=== PATIENT | male | born 1965 | race Asian ===

== ENCOUNTER 2021-07-13 10:28 | Inpatient (IN) | payer OTHER, SELFPAY ==
[~2021-07-13] VITALS: Ht 167.6 cm; Wt 78.5 kg
[2021-07-13 10:51] VITALS: BP 134/85
--- NOTE | 2021-07-13 10:59 | NUR ---
TENT 1. O2 SAT 89 AT THIS TIME.
--- NOTE | 2021-07-13 11:15 | NUR ---
PATIENT W/C ASSISTED TO BED 2.
--- NOTE | 2021-07-13 12:15 | NUR ---
55/M PRESENTS TO ED WITH C/O COUGH AND SOB X2 DAYS. PATIENT STATES HIS AND SON TESTED POSITIVE FOR COVID, STATING HE BEGAN HAVING SYMPTOMS BUT HAS NOT BEEN TESTED. PATIENT ARRIVED WITH OXYGEN IN THE HIGH 80's ON ROOM AIR. PATIENT DENIES CP, N/V/D, URINARY SYMPTOMS, FEVER OR CHILLS. PATIENT REPORTS HE IS NOT VACCINATED AGAINST COVID. 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 DR. MARIN BEDSIDE EVALUATING PATIENT.
--- NOTE | 2021-07-13 12:17 | NUR ---
POST ABG PUNCTURE PLACED BACK ON SUPPLEMENTAL OXYGEN AT 3 LPM VIA NC
--- NOTE | 2021-07-13 12:25 | NUR ---
20G IV ESTABLISHED TO LEFT AC, LABS COLLECTED AND WALKED TO LAB.
--- NOTE | 2021-07-13 12:30 | NUR ---
PATIENT PROVIDED WITH URINAL, URINE COLLECTED AND WALKED TO LAB.
--- NOTE | 2021-07-13 12:30 | NUR ---
NOVEL, MARIA AND FLU SWABS COLLECTED AND WALKED TO LAB.
[2021-07-13 13:00] LABS: HEMOGLOBIN 15.6 g/dL (12.0-18.0); WHITE BLOOD COUNT (AUTO) 4.4 K/uL (4.8-10.8)
[2021-07-13 13:06] LABS: BASOPHILS % (AUTO) 0.2 % (0.0-2.0); HEMATOCRIT 44.2 % (36-52); LYMPHOCYTES # (AUTO) 0.5 K/uL (2.0-11.5); LYMPHOCYTES % (AUTO) 11.5 % (20.5-51.1); MEAN CORPUSCULAR HEMOGLOBIN 31 pg (27-31); MEAN CORPUSCULAR HGB CONC 35 g/dL (33-37); MEAN CORPUSCULAR VOLUME 87.4 fL (80-94); MONOCYTES # (AUTO) 0.3 K/uL (0.8-1.0); MONOCYTES % (AUTO) 5.8 % (1.7-9.3); NEUTROPHILS # (AUTO) 3.6 K/uL (1.8-7.7); NEUTROPHILS % (AUTO) 82.5 % (42.2-75.2); PLATELET COUNT (AUTO) 104 K/uL (140-450); RED BLOOD CELL COUNT(AUTO) 5.05 MIL/uL (4.20-6.10); RED CELL DISTRIBUTION WIDTH 12.7 % (11.6-13.7)
[2021-07-13 13:17] LABS: ALBUMIN 3.2 g/dL (3.4-5.0); ANION GAP 12.9 (8-16); CARBON DIOXIDE 25.1 mmol/L (21-32); CREATININE 1.2 mg/dL (0.6-1.3); TOTAL BILIRUBIN 0.4 mg/dL (0.0-1.0)
[2021-07-13 13:18] LABS: C-REACTIVE PROTEIN QUANT 7.4 mg/dL (0.0-0.9); PROTHROMBIN TIME 9.5 secs (10.8-13.4)
[2021-07-13 13:41] LABS: CKMB RELATIVE INDEX 0.3 (0.0-2.5); CREATINE KINASE MB 1.7 ng/mL (0-3.6)
[2021-07-13 13:50] LABS: APPEARANCE,URINE BLOODY (CLEAR); BILIRUBIN,URINE NEGATIVE (NEGATIVE); BLOOD, URINE 2+ (NEGATIVE); COLOR,URINE OTHER (YELLOW); LEUKOCYTE ESTERASE ,URINE NEGATIVE (NEGATIVE); NITRITE, URINE NEGATIVE (NEGATIVE); UGLUCOSE NEGATIVE (NEGATIVE)
[2021-07-13 13:56] LABS: RSV NEGATIVE (NEGATIVE)
--- NOTE | 2021-07-13 14:25 | NUR ---
PT IN BED, URINAL PROVIDED, HOB ELEVATED FOR COMFORT, VSS, WILL CONTINUE TO MONITOR.
[2021-07-13 14:54] LABS: WBC,URINE 0-5 /HPF (0-5)
[2021-07-13] MEDS ORDERED: ACETAMINOPHEN 325 MG TAB PO ONE (15:10)
--- NOTE | 2021-07-13 15:11 | NUR ---
PATIENT HAS ORAL TEMP OF 102.3, DR. MARIN MADE AWARE.
[2021-07-13] MEDS ORDERED: MAG SULF 2000 MG/WATER PREMIX 50 ML IV PRN (15:55)
[2021-07-13] MEDS ORDERED: IBUPROFEN 400 MG TAB PO PRN (15:55)
[2021-07-13] MEDS ORDERED: ONDANSETRON 4 MG/2 ML VIAL IVP PRN (15:55)
[2021-07-13] MEDS ORDERED: MAGNESIUM OXIDE 400 MG TAB PO PRN (15:55)
[2021-07-13] MEDS ORDERED: POTASSIUM CHLORIDE 10 MEQ TABER PO PRN (15:55)
[2021-07-13] MEDS ORDERED: ACETAMINOPHEN 325 MG TAB PO PRN (15:55)
[2021-07-13] MEDS ORDERED: KCL 20 MEQ/WATER INJ PREMIX 200 ML IV PRN (15:55)
[2021-07-13] MEDS ORDERED: remdesivir COMMUNICATION ORDER 1 EA MISC MC PRN (16:05)
[2021-07-13] MEDS ORDERED: remdesivir CLINICAL MONITORING 1 EA MISC MC PRN (16:15)
[2021-07-13] MEDS ORDERED: REMDESIVIR. 200 MG in NACL 0.9% 100 ML IV SCH (17:00)
--- NOTE | 2021-07-13 17:00 | NUR ---
PATIENT PROVIDED WITH DINNER TRAY, PATIENT SITTING UP EATING. 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
[2021-07-13] MEDS ORDERED: cefTRIAXone 1,000 MG VIAL ONE (17:02)
[2021-07-13] MEDS ORDERED: AZITHROMYCIN 500 MG INJ VIAL IV ONE (17:17)
[2021-07-13] MEDS: AZITHROMYCIN 500 MG in DEXTROSE 5% 250 ML IV SCH (18:21)
--- NOTE | 2021-07-13 18:30 | NUR ---
PATIENT RESTING, SIDE RAIL UP X1, ON BEDSIDE HVAC SALES ENGINEER. PATIENT HAS NO COMPLAINTS OF PAIN OR SOB AT THIS TIME. ALL NEEDS MET AT THIS TIME.
--- NOTE | 2021-07-13 19:23 | NUR ---
Pt report given to KENIA MARTINEZ. Transfer of care at this time.
--- NOTE | 2021-07-13 19:25 | NUR ---
RECEIVED IN BED 2 RESTING WITH EYES CLOSED, AWAKENED WITH EASE FOR VS. VOICES NO COMPLAINTS. SL INTACT TO LEFT A/C
--- NOTE | 2021-07-13 20:30 | NUR ---
REPORT CALLED TO JUAN DUNN
--- NOTE | 2021-07-13 21:35 | NUR ---
TO 113 VIA GURBLAIR ATTACHED TO CM ACCOMPANIED BY RN AND ERT
[2021-07-14 01:51] VITALS: BP 135/86
--- NOTE | 2021-07-14 02:07 | NUR ---
the patient was admitted for SOB and productive cough. the admitting dx was Covid-19 pneumonia. the patient is on 5L NC to keep his 02 stat O2 AT 90%. THE PATIENT HAS ORDER FOR HIGH FLOW O2 IN CASE HIS O2 STAT LESS THAN 90%. THE PATEINT SLEEP COMFOTABLE IN HIS BED. COMFORT AND SAFETY MEASURES ARE PROVIDED. BED IS LOW POSITION
[2021-07-14 04:28] VITALS: BP 124/69
--- NOTE | 2021-07-14 06:39 | NUR ---
PATIENT HAS BEEN SCREENED AND CATEGORIZED MODERATE NUTRITION RISK. PATIENT WILL BE SEEN WITHIN 3-5 DAYS OF ADMISSION. 07/16/21 07/18/[address]
[2021-07-14 08:00] VITALS: BP 119/66
[2021-07-14] MEDS: COMMUNICATION ORDER MC SCH (08:40)
[2021-07-14 08:51] LABS: BASOPHILS % (AUTO) 0.1 % (0.0-2.0); HEMATOCRIT 46.9 % (36-52); LYMPHOCYTES # (AUTO) 0.7 K/uL (2.0-11.5); MEAN CORPUSCULAR HEMOGLOBIN 30 pg (27-31); MEAN CORPUSCULAR HGB CONC 34 g/dL (33-37); MEAN CORPUSCULAR VOLUME 89.1 fL (80-94); MONOCYTES # (AUTO) 0.3 K/uL (0.8-1.0); MONOCYTES % (AUTO) 5.5 % (1.7-9.3); NEUTROPHILS # (AUTO) 4.2 K/uL (1.8-7.7); NEUTROPHILS % (AUTO) 81.4 % (42.2-75.2); PLATELET COUNT (AUTO) 128 K/uL (140-450); RED BLOOD CELL COUNT(AUTO) 5.26 MIL/uL (4.20-6.10); RED CELL DISTRIBUTION WIDTH 13.1 % (11.6-13.7); WHITE BLOOD COUNT (AUTO) 5.2 K/uL (4.8-10.8)
[2021-07-14] MEDS: PANTOPRAZOLE 40 MG TABEC PO SCH (09:00)
[2021-07-14] MEDS: APIXABAN 2.5 MG TAB PO SCH ×2 (09:00→21:46)
[2021-07-14] MEDS ORDERED: ENOXAPARIN 40 MG/0.4 ML SYR SUBQ SCH (09:00)
[2021-07-14] MEDS: OLUMIANT PO SCH (09:00)
[2021-07-14 09:06] LABS: ALBUMIN 2.9 g/dL (3.4-5.0); ANION GAP 11.1 (8-16); CARBON DIOXIDE 25.8 mmol/L (21-32); MAGNESIUM 1.9 mg/dL (1.8-2.4); POTASSIUM 3.9 mmol/L (3.5-5.1); TOTAL BILIRUBIN 0.4 mg/dL (0.0-1.0)
[2021-07-14 12:00] VITALS: BP 121/66
[2021-07-14] MEDS: REMDESIVIR. 100 MG in NACL 0.9% 100 ML IV SCH (14:00)
[2021-07-14 16:00] VITALS: BP 118/88
[2021-07-14] MEDS: AZITHROMYCIN 500 MG in DEXTROSE 5% 250 ML IV SCH (18:30)
[2021-07-14 20:06] VITALS: BP 133/89
[2021-07-15] VITALS: BP 113/70
--- NOTE | 2021-07-15 02:37 | NUR ---
PATIENT AWAKE ALERT NO C/O IN ISOLATION FOR COVID AND PNEUMONIA SINUS ON MONITOR LUNGS DIMINISH SAT90% NO SIGNS OF ACUTE DISTRESS.HAS H.L IN UPPER LEFT ARM PATIENT TO FLUSH.
[2021-07-15 04:00] VITALS: BP 114/89
[2021-07-15 07:29] LABS: BASOPHILS % (AUTO) 0.2 % (0.0-2.0); HEMATOCRIT 47.2 % (36-52); HEMOGLOBIN 16.2 g/dL (12.0-18.0); LYMPHOCYTES # (AUTO) 0.9 K/uL (2.0-11.5); LYMPHOCYTES % (AUTO) 19.5 % (20.5-51.1); MEAN CORPUSCULAR HEMOGLOBIN 30 pg (27-31); MEAN CORPUSCULAR HGB CONC 34 g/dL (33-37); MEAN CORPUSCULAR VOLUME 87.5 fL (80-94); MONOCYTES # (AUTO) 0.6 K/uL (0.8-1.0); MONOCYTES % (AUTO) 11.4 % (1.7-9.3); NEUTROPHILS # (AUTO) 3.3 K/uL (1.8-7.7); NEUTROPHILS % (AUTO) 68.9 % (42.2-75.2); PLATELET COUNT (AUTO) 157 K/uL (140-450); WHITE BLOOD COUNT (AUTO) 4.8 K/uL (4.8-10.8)
[2021-07-15 07:35] LABS: ALBUMIN 2.8 g/dL (3.4-5.0); ANION GAP 10.2 (8-16); CARBON DIOXIDE 26.7 mmol/L (21-32); CREATININE 1.1 mg/dL (0.6-1.3); MAGNESIUM 2.3 mg/dL (1.8-2.4); POTASSIUM 4.9 mmol/L (3.5-5.1); TOTAL BILIRUBIN 0.5 mg/dL (0.0-1.0)
[2021-07-15 08:00] VITALS: BP 101/67
--- NOTE | 2021-07-15 08:18 | NUR ---
RECEIVED PATIENT FROM NIGHT RN. PT A0X4, NO S/S OF SOB. LOOKS COMFORTABLE. VS STABLE. LAC 20G WNL. WILL CONT MONITORING.
[2021-07-15] MEDS: PANTOPRAZOLE 40 MG TABEC PO SCH (09:46)
[2021-07-15] MEDS: OLUMIANT PO SCH (09:47)
[2021-07-15] MEDS: COMMUNICATION ORDER MC SCH (09:48)
[2021-07-15] MEDS: APIXABAN 2.5 MG TAB PO SCH ×2 (11:25→21:00)
[2021-07-15 12:00] VITALS: BP 112/69
[2021-07-15] MEDS: REMDESIVIR. 100 MG in NACL 0.9% 100 ML IV SCH (14:00)
[2021-07-15 16:30] VITALS: BP 133/77
[2021-07-15] MEDS: AZITHROMYCIN 500 MG in DEXTROSE 5% 250 ML IV SCH (17:34)
--- NOTE | 2021-07-15 18:47 | NUR ---
NO SIGNIFICANT CHANGES. PTIENT REMAINS ON HI FLOW SATING 90% . ALL MEDS GIVEN. IV WNL. PT REMAINS AOX4. WILL ENDORSER REPORT TO PM JUAN.
[2021-07-15 20:00] VITALS: BP 120/78
[2021-07-16] VITALS: BP 121/68
--- NOTE | 2021-07-16 01:39 | NUR ---
PATIENT ALERT IN ISOLATION FOR COVID + SINUS ON MONITOR NO C/O HAS HIGH FLOW ON 100%. SAT 95%. LUNGS DIMINISH PATIENT VOIDING IN URINAL 400 CC OUT. NO BOWEL MOVEMENT.TEMP 97.8. HAS IV SITE 20 GA UPPER RIGHT ARM.
[2021-07-16 04:00] VITALS: BP 123/64
[2021-07-16 07:20] LABS: BASOPHILS % (AUTO) 0.1 % (0.0-2.0); EOSINOPHILS % (AUTO) 0.1 % (0.0-4.0); HEMATOCRIT 48.8 % (36-52); HEMOGLOBIN 16.7 g/dL (12.0-18.0); LYMPHOCYTES # (AUTO) 0.7 K/uL (2.0-11.5); LYMPHOCYTES % (AUTO) 12.8 % (20.5-51.1); MEAN CORPUSCULAR HEMOGLOBIN 30 pg (27-31); MEAN CORPUSCULAR HGB CONC 34 g/dL (33-37); MEAN CORPUSCULAR VOLUME 88.8 fL (80-94); MONOCYTES # (AUTO) 0.7 K/uL (0.8-1.0); MONOCYTES % (AUTO) 12.1 % (1.7-9.3); NEUTROPHILS # (AUTO) 4.1 K/uL (1.8-7.7); NEUTROPHILS % (AUTO) 74.9 % (42.2-75.2); PLATELET COUNT (AUTO) 209 K/uL (140-450); RED CELL DISTRIBUTION WIDTH 12.9 % (11.6-13.7); WHITE BLOOD COUNT (AUTO) 5.4 K/uL (4.8-10.8)
[2021-07-16 07:26] LABS: ALBUMIN 2.9 g/dL (3.4-5.0); ANION GAP 9.9 (8-16); CARBON DIOXIDE 27.1 mmol/L (21-32); MAGNESIUM 2.3 mg/dL (1.8-2.4); TOTAL BILIRUBIN 0.6 mg/dL (0.0-1.0)
[2021-07-16 08:00] VITALS: BP 115/75
--- NOTE | 2021-07-16 08:05 | NUR ---
RECEIVED ON A VAPOTHERM HIGH FLOW NASAL CANNULA WITH COMPRESSOR ON AND FUNCTIONING WELL PLUGGED INTO RED OUTLET TOLERATING WITHOUT ADVERSE REACTIONS NOTED LOC AWAKE AND ALERT VERBALLY RESPONSIVE POSITION ON RIGHT SIDE SATURATION 95% ON FIO2 OF 100% TITRATED FIO2 TO 95% ROD/RN NOTIFIED
[2021-07-16] MEDS: COMMUNICATION ORDER MC SCH (09:00)
[2021-07-16] MEDS: PANTOPRAZOLE 40 MG TABEC PO SCH (09:28)
[2021-07-16] MEDS: OLUMIANT PO SCH (09:31)
[2021-07-16] MEDS: APIXABAN 2.5 MG TAB PO SCH ×2 (09:31→20:50)
[2021-07-16 12:00] VITALS: BP 120/73
--- NOTE | 2021-07-16 14:17 | NUR ---
TOLERATING VAPOTHERM HIGH FLOW NASAL CANNULA GOOD CHEST RISE SATURATION 95% ON FIO2 OF 90% TITRATED FIO2 TO 85% ROD/RN NOTIFIED
[2021-07-16] MEDS: REMDESIVIR. 100 MG in NACL 0.9% 100 ML IV SCH (14:43)
[2021-07-16 16:00] VITALS: BP 126/89
--- NOTE | 2021-07-16 16:03 | NUR ---
DC PLANNING: CM ATTEMPTED TO SPEAK WITH THE PATIENT BY PHONE YESTERDAY, HE STATED THAT HE WAS UNABLE TO HEAR THE CM AND TERMINATED THE CALL. THE HUI CORRAL WILL ATTEMPTED TO REACH FAMILY TO INTERVIEW FOR DC PLANNING. CM WILL FOLLOW FOR NEEDS.
--- NOTE | 2021-07-16 16:48 | NUR ---
TOLERATING VAPOTHERM HIGH FLOW NASAL CANNULA ALERT AND AWAKE REMAINS ON RIGHT SIDE GOOD CHEST RISE SATURATION 94%-95% ON FIO2 OF 85% TITRATED FIO2 TO 80% ROD/RN NOTIFIED
[2021-07-16] MEDS: AZITHROMYCIN 500 MG in DEXTROSE 5% 250 ML IV SCH (17:35)
[2021-07-16 20:00] VITALS: BP 130/79
--- NOTE | 2021-07-16 20:00 | NUR ---
RECEIVED PATIENT AWAKE IN BED. PATIENT ON HFNC 30L 70% FIO2. O2 SAT 91%. NO SOB NOTED AT THIS TIME. NO COUGH AT THIS TIME. PT EDUCATED TO USE THE CALL LIGHT WHEN IN NEED OF ASSISTANCE. PT VERBALIZED UNDERSTANDING. PT ON TELE MONITORING. BED LOWERED WITH CALL LIGHT WITHIN REACH. WILL CONTINUE TO MONITOR
[2021-07-16] MEDS: ZOLPIDEM 5 MG TAB PO PRN (20:51)
[2021-07-17] VITALS: BP 125/75
--- NOTE | 2021-07-17 03:05 | NUR ---
PT ASLEEP IN BED. NO S/S OF DISTRESS NOTED
--- NOTE | 2021-07-17 03:21 | NUR ---
PT FEELING SOB. HFNC TITRATED TO 40L 80% FIO2. PT ASSISTED TO PRONE POSITION. OS SAT 91% AT THIS TIME.
[2021-07-17 04:00] VITALS: BP 124/74
[2021-07-17 07:10] LABS: BASOPHILS % (AUTO) 0.2 % (0.0-2.0); EOSINOPHILS % (AUTO) 0.1 % (0.0-4.0); HEMATOCRIT 48.3 % (36-52); HEMOGLOBIN 16.6 g/dL (12.0-18.0); LYMPHOCYTES # (AUTO) 1.1 K/uL (2.0-11.5); LYMPHOCYTES % (AUTO) 7.5 % (20.5-51.1); MEAN CORPUSCULAR HEMOGLOBIN 30 pg (27-31); MEAN CORPUSCULAR HGB CONC 34 g/dL (33-37); MEAN CORPUSCULAR VOLUME 87.5 fL (80-94); MONOCYTES # (AUTO) 1.1 K/uL (0.8-1.0); MONOCYTES % (AUTO) 7.5 % (1.7-9.3); NEUTROPHILS # (AUTO) 12.6 K/uL (1.8-7.7); NEUTROPHILS % (AUTO) 84.7 % (42.2-75.2); PLATELET COUNT (AUTO) 234 K/uL (140-450); RED BLOOD CELL COUNT(AUTO) 5.52 MIL/uL (4.20-6.10); RED CELL DISTRIBUTION WIDTH 12.8 % (11.6-13.7); WHITE BLOOD COUNT (AUTO) 14.9 K/uL (4.8-10.8)
--- NOTE | 2021-07-17 07:28 | NUR ---
PT REPORT GIVEN TO AM NURSE. PT ENDORSED IN STABLE CONDITION
--- NOTE | 2021-07-17 07:30 | NUR ---
RECEIVED REPORT FROM NIGHT NURSE PATIENT ON 40 L HIGH FLOW AT 70%, ON SINUS RHYTHM, SKIN INTACT, IV ON LEFT FA GAUGE 22 SALINE LOCK, CARDIAC DIET, PT UNVACCINATED. SAFETY MEASURES IN PLACE AND CALL LIGHT WITHIN REACH. WILL CONTINUE TO MONITOR.
--- NOTE | 2021-07-17 07:35 | NUR ---
RECEIVED ON A VAPOTHERM HIGH FLOW NASAL CANNULA WITH COMPRESSOR ON PLUGGED INTO RED OUTLET TOLERATING WELL WITHOUT ADVERSE REACTIONS NOTED PRONE POSITION STABLE GOOD GOOD CHEST RISE BREATH SOUNDS DECREASED BILATERAL GOOD AERATION THROUGHOUT BILATERAL AIRWAYS NO EVIDENCE OF RALES RO WHEEZE SATURATION 94% ON FIO2 OF 70% TITRATED FIO2 TO 65% QUINN/RN NOTIFIED
--- NOTE | 2021-07-17 07:43 | NUR ---
PATIENT SEEN BY RT AND HIGH FLOW AT 36 LITERS AND FIO2 65% SATURATING WELL.
[2021-07-17 07:44] LABS: ALBUMIN 2.9 g/dL (3.4-5.0); CARBON DIOXIDE 22.5 mmol/L (21-32); MAGNESIUM 2.1 mg/dL (1.8-2.4); POTASSIUM 4.5 mmol/L (3.5-5.1); TOTAL BILIRUBIN 0.8 mg/dL (0.0-1.0)
[2021-07-17 08:00] VITALS: BP 116/73
--- NOTE | 2021-07-17 08:53 | NUR ---
(07/17/21) RD INITIAL ASSESSMENT COMPLETED PLEASE REFER TO NUTRITION ASSESSMENT UNDER CARE ACTIVITY FOR ESTIMATED NUTRITIONAL NEEDS. RD RECOMMENDATIONS: 1. CONTINUE ON CARDIAC DIET TOLERATED. 2. RDN ADDED HEALTH SHAKES (6-OZ) TO EACH MEAL TID. THIS WILL PROVIDE AN ADDITIONAL 900 KCAL AND 27 GM PROTEIN TO HELP MEET EST NUTRIENT NEEDS. 3. CONSULT RDN PRN. 4. RD WILL F/U 3-5 DAYS; MODERATE RISK. KEVIN GARZA MS, RDN
[2021-07-17] MEDS: PANTOPRAZOLE 40 MG TABEC PO SCH (09:05)
[2021-07-17] MEDS: OLUMIANT PO SCH (09:06)
[2021-07-17] MEDS: APIXABAN 2.5 MG TAB PO SCH ×2 (09:07→22:00)
--- NOTE | 2021-07-17 09:15 | NUR ---
ADMINISTERED SCHEDULED MEDICATION AND CHECK VITAL SIGNS PRIOR TO MEDICATION BP 116/73 KS 86. PATIENT ON PRONE POSITION, STILL WITH SOB. PT TOLERATED MEDICATION. WILL CONTINUE TO MONITOR.
--- NOTE | 2021-07-17 11:00 | NUR ---
MADE ROUNDS PT ON PRONE POSITION ON HIGH FLOW 36L FIO2 65%, WILL CONTINUE TO MONITOR.
[2021-07-17 12:00] VITALS: BP 90/69
--- NOTE | 2021-07-17 12:08 | NUR ---
PATIENT ON PRONE POSITION SATURATION AT 96%
[2021-07-17] MEDS: REMDESIVIR. 100 MG in NACL 0.9% 100 ML IV SCH (13:14)
--- NOTE | 2021-07-17 13:19 | NUR ---
ADMINISTERED SCHEDULED MEDICATION REMDESIVIR 100 MG AT 133 MLS/HR INFUSING WELL PT STILL ON HIGH FLOW SATURATING AT 92% WILL CONTINUE TO MONITOR.
[2021-07-17 16:00] VITALS: BP 107/68
--- NOTE | 2021-07-17 16:15 | NUR ---
ADMINISTERED SCHEDULED ANTIBIOTIC CEFTRIAXONE 1000 MG INFUSING WELL PT ON HIGH FLOW AND ON PRONE POSITION SATURATING AT 945.
[2021-07-17] MEDS: AZITHROMYCIN 500 MG in DEXTROSE 5% 250 ML IV SCH (16:49)
--- NOTE | 2021-07-17 16:55 | NUR ---
SCHEDULED MEDICATION GIVEN AZITHROMYCIN 250 ML AT 500 MG INFUSING WELL
--- NOTE | 2021-07-17 17:38 | NUR ---
PT ON HIGH FLOW 36LITERS AND FIO2 60% SATURATING AT 94%. PER RT
--- NOTE | 2021-07-17 19:41 | NUR ---
ENDORSED TO NIGHT NURSE FOR CONTINUITY OF CARE. PT STABLE.
[2021-07-17 20:00] VITALS: BP 92/56
[2021-07-17] MEDS: ZOLPIDEM 5 MG TAB PO PRN (22:00)
--- NOTE | 2021-07-17 22:20 | NUR ---
Assumed care. A/O x 4. In no acute distress. Denies pain. Remains on HFNC 36 liters, 60% Fio2. BP is on the low side. Uses a urinal to void. Has a bedside commode. Will assist in use as needs arise. Advised to use call light in case he needs assistance. Verbalized understanding. Will continue to monitor.
[2021-07-18] VITALS: BP 97/54
[2021-07-18 04:00] VITALS: BP 99/54
--- NOTE | 2021-07-18 07:18 | NUR ---
RECEIVED REPORT FROM NIGHT NURSE PATIENT IS ON HIGH FLOW 36L FIO2 60%, IV ON THE LEFT FA G22 SALINE LOCK, SKIN INTACT,ON BEDREST. SAFETY MEASURES IN PLACE AND CALL LOGHT WITHIN REACH. WILL CONTINUE TO MONITOR.
--- NOTE | 2021-07-18 07:45 | NUR ---
Ther have been no changes in his status. Care has been endorsed to AM JUAN.
[2021-07-18 08:00] VITALS: BP 110/77
[2021-07-18 08:11] LABS: EOSINOPHILS # (AUTO) 0.1 K/uL (0-0.4); EOSINOPHILS % (AUTO) 0.5 % (0.0-4.0); HEMATOCRIT 46.3 % (36-52); HEMOGLOBIN 15.9 g/dL (12.0-18.0); LYMPHOCYTES # (AUTO) 0.9 K/uL (2.0-11.5); MEAN CORPUSCULAR HEMOGLOBIN 30 pg (27-31); MEAN CORPUSCULAR HGB CONC 34 g/dL (33-37); MEAN CORPUSCULAR VOLUME 88.5 fL (80-94); MONOCYTES # (AUTO) 0.6 K/uL (0.8-1.0); NEUTROPHILS # (AUTO) 10.9 K/uL (1.8-7.7); PLATELET COUNT (AUTO) 248 K/uL (140-450); RED BLOOD CELL COUNT(AUTO) 5.23 MIL/uL (4.20-6.10); RED CELL DISTRIBUTION WIDTH 12.9 % (11.6-13.7); WHITE BLOOD COUNT (AUTO) 12.4 K/uL (4.8-10.8)
[2021-07-18 08:38] LABS: ALBUMIN 2.8 g/dL (3.4-5.0); ANION GAP 13.1 (8-16); CARBON DIOXIDE 24.1 mmol/L (21-32); POTASSIUM 4.2 mmol/L (3.5-5.1); TOTAL BILIRUBIN 0.9 mg/dL (0.0-1.0)
[2021-07-18 09:03] LABS: NEUTROPHILS % (AUTO) 87.5 % (42.2-75.2)
[2021-07-18] MEDS: PANTOPRAZOLE 40 MG TABEC PO SCH (09:18)
[2021-07-18] MEDS: APIXABAN 2.5 MG TAB PO SCH ×2 (09:20→21:00)
[2021-07-18] MEDS: OLUMIANT PO SCH (09:20)
--- NOTE | 2021-07-18 09:25 | NUR ---
ADMINISTERED SCHEDULED MEDICATION, VITAL SIGNS CHECK BP 110/77 NH 81. PATIENT LYING ON THE SIDE NO DISTRESS NOTED, ON HIGH FLOW AT 30 LITERS AND 50% SATURATING AT 93%. WILL CONTINUE TO MONITOR.
--- NOTE | 2021-07-18 11:00 | NUR ---
MADE ROUNDS PATIENT RESTING STILL ON HIGH FLOW.
[2021-07-18 12:00] VITALS: BP 89/59
[2021-07-18] MEDS ORDERED: NACL 0.9% 250 ML IV ONE (12:25)
[2021-07-18] MEDS: MIDODRINE 5 MG TAB PO SCH ×2 (12:33→18:06)
--- NOTE | 2021-07-18 12:37 | NUR ---
MIDODRINE 5 MG GIVEN AND SODIUM CHLORIDE 0.9% 250 ML BOLUS GIVEN, PT BP 89/[address] WRIGHT AWARE. HIGH FLOW 25LITERS 50%. SATURATING AT 92%. NO DISTRESS NOTED.
--- NOTE | 2021-07-18 14:12 | NUR ---
PATIENT ON HIGH FLOW 25LITERS AND EAY626% SATURATING AT 92% NO DISTRESS NOTED PATIENT IS SITTING.
[2021-07-18 16:00] VITALS: BP 96/56
--- NOTE | 2021-07-18 18:09 | NUR ---
MIDODRINE 5 MG GIVEN PATIENT RESTING AT THIS TIME.
--- NOTE | 2021-07-18 19:16 | NUR ---
ENDORSED TO NIGHT NURSE FOR CONTINUITY OF CARE. PT STABLE
[2021-07-18 20:00] VITALS: BP 98/57
--- NOTE | 2021-07-18 20:36 | NUR ---
Asumed care. A/O x 4. In no acute distress respiratory or otherwise. Urinal has been emptied. Has a lot of trash on the floor. Floor has been cleaned. We have set him up with a trash bag within which he will be dumping his used tissues. Will continue to monitor.
[2021-07-18] MEDS: ZOLPIDEM 5 MG TAB PO PRN (20:59)
--- NOTE | 2021-07-18 22:47 | NUR ---
Remains calm. In no acute distress respiratory or otherwise. Helped connect Phone to district manager major accounts sales. Will continue to monitor.
[2021-07-19] VITALS: BP 95/64
[2021-07-19 04:00] VITALS: BP 98/63
[2021-07-19] MEDS: MIDODRINE 5 MG TAB PO SCH ×3 (07:02→18:27)
[2021-07-19 07:04] LABS: BASOPHILS % (AUTO) 0.2 % (0.0-2.0); EOSINOPHILS # (AUTO) 0.1 K/uL (0-0.4); EOSINOPHILS % (AUTO) 1.5 % (0.0-4.0); HEMATOCRIT 46.7 % (36-52); HEMOGLOBIN 15.8 g/dL (12.0-18.0); LYMPHOCYTES # (AUTO) 1.1 K/uL (2.0-11.5); LYMPHOCYTES % (AUTO) 11.9 % (20.5-51.1); MEAN CORPUSCULAR HEMOGLOBIN 30 pg (27-31); MEAN CORPUSCULAR HGB CONC 34 g/dL (33-37); MONOCYTES # (AUTO) 0.6 K/uL (0.8-1.0); MONOCYTES % (AUTO) 6.7 % (1.7-9.3); NEUTROPHILS # (AUTO) 7.2 K/uL (1.8-7.7); NEUTROPHILS % (AUTO) 79.7 % (42.2-75.2); PLATELET COUNT (AUTO) 318 K/uL (140-450); RED BLOOD CELL COUNT(AUTO) 5.24 MIL/uL (4.20-6.10); RED CELL DISTRIBUTION WIDTH 13.1 % (11.6-13.7)
--- NOTE | 2021-07-19 07:20 | NUR ---
RECEIVED REPORT FROM AUDIO VIDEO TECHNICIAN NURSE FOR CONTINUITY OF PATIENT CARE. PATIENT SLEEPING. NO ACUTE DISTRESS NOTED. BREATHING EVEN AND UNLABORED. PATIENT ON HIGH FLOW.PATIENT HAS L FOREARM 22 G. ALL SAFETY MEASURES IN PLACE. CALL LIGHT WITHIN REACH. WILL CONTINUE TO MONITOR.
[2021-07-19 07:22] LABS: ALBUMIN 2.8 g/dL (3.4-5.0); ANION GAP 12.9 (8-16); CARBON DIOXIDE 25.7 mmol/L (21-32); CREATININE 1.1 mg/dL (0.6-1.3); POTASSIUM 4.6 mmol/L (3.5-5.1); TOTAL BILIRUBIN 0.9 mg/dL (0.0-1.0)
--- NOTE | 2021-07-19 07:40 | NUR ---
PER RT, PATIENT WAS SWITCHED TO NC 15L
--- NOTE | 2021-07-19 07:42 | NUR ---
He has done well through the night. In no acute distress respiratory or otherwise. Has managed to keep the SBP in the high 90s. AM Midodrine has been administered. Care has been endorsed to AM RN
[2021-07-19 08:00] VITALS: BP 89/61
[2021-07-19] MEDS: PANTOPRAZOLE 40 MG TABEC PO SCH (09:40)
[2021-07-19] MEDS: APIXABAN 2.5 MG TAB PO SCH ×2 (09:42→21:02)
[2021-07-19] MEDS: OLUMIANT PO SCH (09:43)
--- NOTE | 2021-07-19 09:57 | NUR ---
PATIENT AWAKE AND ALERT. NO ACUTE DISTRESS NOTED. BREATHING EVEN AND UNLABORED. PATIENT ON 15L NC. PATIENT O2 IS 92%. SCHEDULED MEDICATIONS GIVEN.ALL SAFETY MEASURES IN PLACE. CALL LIGHT WITHIN REACH. WILL CONTINUE TO MONITOR.
--- NOTE | 2021-07-19 11:10 | NUR ---
PATIENT AWAKE AND ALERT. NO ACUTE DISTRESS NOTED. BREATHING EVEN AND UNLABORED. PATIENT ON 15L NC. PATIENT O2 IS 92%. ALL SAFETY MEASURES IN PLACE. CALL LIGHT WITHIN REACH. WILL CONTINUE TO MONITOR.
--- NOTE | 2021-07-19 11:18 | NUR ---
DC PLANNING: CM SPOKE WITH THE PATIENTS CHRISTIAN BY PHONE USING [employer] FOR [employer]. CONFIRMED THE PATIENTS ADDRESS AND PHONE NUMBER PER THE FACE SHEET. THE PATIENT LIVES IN A GROUND FLOOR APARTMENT WITH HIS AND SON, AND IS INDEPENDENT IN ALL ACTIVITIES. THE PATIENT HAS NO H/O HOME HEALTH OR DME USE. HE SEES HIS PCP DR. KING EVERY FEW MONTHS, AND HAS NO H/O OF O2 USE IN THE HOME. CM EXPLAINED THAT HE MIGHT NEED O2 AFTER HE DISCHARGES AND THAT IF IT'S NECESSARY THAT SOMEONE FROM A DME COMPANY WILL BE CALLING THEM TO SCHEDULE DELIVERY. NO FURTHER CONCERNS VOICED BY FAMILY. MARITZA THEN SPOKE WITH JAVIER AT [facility] ([phone] X [phone]) TO ASK ABOUT DELEGATION FOR OUTPATIENT O2. HE STATES THAT [employer] IS THE VENDOR AND THAT INFORMATION SHOULD BE SENT DIRECTLY TO THEM ONCE ORDERS FOR HOME O2 ARE RECEIVED. PHONE FOR [employer] [facility] IS [phone], FAX [phone]. MARITZA WILL CONTINUE TO FOLLOW FOR NEEDS.
[2021-07-19 12:00] VITALS: BP 96/70
--- NOTE | 2021-07-19 13:35 | NUR ---
PATIENT AWAKE AND ALERT. NO ACUTE DISTRESS NOTED. BREATHING EVEN AND UNLABORED. PATIENT ON 15L NC. PATIENTS O2 IS 95%. ALL SAFETY MEASURES IN PLACE. CALL LIGHT WITHIN REACH. WILL CONTINUE TO MONITOR
[2021-07-19 16:00] VITALS: BP 89/45
--- NOTE | 2021-07-19 19:20 | NUR ---
ENDORSE TO AIRCRAFT PNEUDRAULIC SYSTEMS MECHANIC NURSE FOR CONTINUITY OF PATIENT CARE. PATIENT STABLE. ALL SAFETY MEASURES IN PLACE.
[2021-07-19 20:00] VITALS: BP 98/58
[2021-07-19] MEDS: ZOLPIDEM 5 MG TAB PO PRN (22:16)
--- NOTE | 2021-07-19 22:17 | NUR ---
PATIENT AWAKE ALERT RESTING IN BED ON MONITOR SINUS TEMP 97.9 NO C/O OF PAIN HAS VERY BAD PRODUCTIVE COUGH. STILL + FOR COVID.ON 02 AT 15 LITER N/C..
[2021-07-20] VITALS: BP 100/56
[2021-07-20 04:00] VITALS: BP 110/58
[2021-07-20] MEDS: MIDODRINE 5 MG TAB PO SCH ×3 (06:21→18:22)
--- NOTE | 2021-07-20 07:05 | NUR ---
RECEIVED REPORT FROM FINISH MACHINE TENDER NURSE FOR CONTINUITY OF PATIENT CARE. PATIENT SLEEPING. NO ACUTE DISTRESS NOTED. BREATHING EVEN AND UNLABORED. PATIENT ON 10 L NC. PATIENT O2 SAT IS 96%. ALL SAFETY MEASURES IN PLACE. CALL LIGHT WITHIN REACH. WILL CONTINUE TO MONITOR
[2021-07-20 07:14] LABS: BASOPHILS % (AUTO) 0.2 % (0.0-2.0); EOSINOPHILS # (AUTO) 0.2 K/uL (0-0.4); EOSINOPHILS % (AUTO) 1.7 % (0.0-4.0); HEMATOCRIT 43.9 % (36-52); HEMOGLOBIN 15.2 g/dL (12.0-18.0); LYMPHOCYTES # (AUTO) 1.2 K/uL (2.0-11.5); LYMPHOCYTES % (AUTO) 11.4 % (20.5-51.1); MEAN CORPUSCULAR HEMOGLOBIN 30 pg (27-31); MEAN CORPUSCULAR HGB CONC 35 g/dL (33-37); MEAN CORPUSCULAR VOLUME 87.6 fL (80-94); MONOCYTES # (AUTO) 0.6 K/uL (0.8-1.0); MONOCYTES % (AUTO) 5.7 % (1.7-9.3); NEUTROPHILS # (AUTO) 8.3 K/uL (1.8-7.7); PLATELET COUNT (AUTO) 324 K/uL (140-450); RED BLOOD CELL COUNT(AUTO) 5.02 MIL/uL (4.20-6.10); RED CELL DISTRIBUTION WIDTH 12.6 % (11.6-13.7); WHITE BLOOD COUNT (AUTO) 10.2 K/uL (4.8-10.8)
[2021-07-20 07:33] LABS: ALBUMIN 2.7 g/dL (3.4-5.0); ANION GAP 12.9 (8-16); CARBON DIOXIDE 24.7 mmol/L (21-32); POTASSIUM 4.6 mmol/L (3.5-5.1); TOTAL BILIRUBIN 0.8 mg/dL (0.0-1.0)
--- NOTE | 2021-07-20 07:52 | NUR ---
RECEIVED ON SUPPLEMENTAL OXYGEN AT 10 LPM VIA BUBBLE HUMIDIFIER WITH CURAPLEX NASAL CANNULA SATURATION 95% TITRATED FIO2 TO 8 LPM TAMIKO NOTIFIED Addendum: 07/20/21 at 0929 by Jose Angel Saravia RT LOC AWAKE AND ALERT BREATH SOUNDS RALES BILATERAL RR 24-28 BPM
[2021-07-20 08:00] VITALS: BP 98/63
[2021-07-20] MEDS: PANTOPRAZOLE 40 MG TABEC PO SCH (09:00)
[2021-07-20] MEDS: APIXABAN 2.5 MG TAB PO SCH ×2 (09:02→20:34)
[2021-07-20] MEDS: OLUMIANT PO SCH (09:07)
--- NOTE | 2021-07-20 09:15 | NUR ---
PATIENT AWAKE AND ALERT. NO ACUTE DISTRESS NOTED. PATIENT AT 8L NC. PATIENTS O2 SAT IS 96%. ALL SCHEDULED MEDICATIONS GIVEN. CALL LIGHT WITHIN REACH. ALL SAFETY MEASURES IN PLACE.
--- NOTE | 2021-07-20 11:15 | NUR ---
PATIENT AWAKE AND ALERT. NO ACUTE DISTRESS NOTED. PATIENT AT 8L NC. PATIENTS O2 SAT IS 96%. CALL LIGHT WITHIN REACH. ALL SAFETY MEASURES IN PLACE. WILL CONTINUE TO MONITOR
[2021-07-20 12:00] VITALS: BP 93/54
--- NOTE | 2021-07-20 13:00 | NUR ---
PER RT PATIENT DECREASED TO 6L NC. PATIENTS O2 SATING AT 95%.
--- NOTE | 2021-07-20 13:10 | NUR ---
SUPPLEMENTAL OXYGEN AT 8 LPM VIA BUBBLE HUMIDIFIER WITH CURAPLEX NASAL CANNULA SATURATION 95% TITRATED FIO2 TO 6 LPM LEONARDO/RN NOTIFIED
--- NOTE | 2021-07-20 15:10 | NUR ---
PATIENT AWAKE AND ALERT. NO ACUTE DISTRESS NOTED. PATIENT AT 6L NC. PATIENTS O2 SAT IS 96%. CALL LIGHT WITHIN REACH. ALL SAFETY MEASURES IN PLACE. WILL CONTINUE TO MONITOR
[2021-07-20 16:00] VITALS: BP 95/59
--- NOTE | 2021-07-20 17:00 | NUR ---
PATIENT AWAKE AND ALERT. NO ACUTE DISTRESS NOTED. PATIENT ON 6L NC. PATIENT SATING AT 97%. CALL LIGHT WITHIN REACH. ALL SAFETY MEASURES IN PLACE. WILL CONTINUE TO MONITOR.
--- NOTE | 2021-07-20 19:25 | NUR ---
PATIENT AWAKE AND ALERT. NO ACUTE DISTRESS NOTED. ENDORSED TO HEALTH SCIENCE SPECIALIST NURSE ABOUT CONTINUITY OF CARE. CALL LIGHT WITHIN REACH. ALL SAFETY MEASURES IN PLACE.
[2021-07-20 20:00] VITALS: BP 95/54
--- NOTE | 2021-07-20 20:00 | NUR ---
PATIENT WAS RECEIVED ALERT AND COHERENT IN HIS ROOM, AMBULATORY TO THE BATH ROOM ON OXYGEN THERAPY VIA NC AT 6 LPM.
--- NOTE | 2021-07-20 20:41 | NUR ---
DUE MED APIXABAN 2.5 MG/ TAB WAS GIVEN BY MOUTH, PLATELET SERUM LEVEL WAS 324, TOLERATED WELL BY THE PATIENT.
[2021-07-21] VITALS: BP 107/72
--- NOTE | 2021-07-21 | NUR ---
PATIENT WAS CALMLY ASLEEP.
--- NOTE | 2021-07-21 02:00 | NUR ---
PATIENT WAS CALMLY ASLEEP.
[2021-07-21 04:00] VITALS: BP 116/71
--- NOTE | 2021-07-21 05:00 | NUR ---
PATIENT WAS CALMLY ASLEEP. WOKE UP TO HAVE V/S TAKEN, WNL.
[2021-07-21] MEDS: MIDODRINE 5 MG TAB PO SCH ×2 (06:46→12:38)
--- NOTE | 2021-07-21 07:13 | NUR ---
ALL REPORTS WERE GIVEN, TRANSFER OF CARE ENDORSED.
[2021-07-21 07:15] LABS: BASOPHILS % (AUTO) 0.1 % (0.0-2.0); EOSINOPHILS # (AUTO) 0.1 K/uL (0-0.4); EOSINOPHILS % (AUTO) 1.4 % (0.0-4.0); HEMATOCRIT 44.4 % (36-52); HEMOGLOBIN 15.2 g/dL (12.0-18.0); LYMPHOCYTES # (AUTO) 1.1 K/uL (2.0-11.5); MEAN CORPUSCULAR HEMOGLOBIN 31 pg (27-31); MEAN CORPUSCULAR HGB CONC 34 g/dL (33-37); MEAN CORPUSCULAR VOLUME 89.6 fL (80-94); MONOCYTES # (AUTO) 0.7 K/uL (0.8-1.0); MONOCYTES % (AUTO) 6.9 % (1.7-9.3); NEUTROPHILS # (AUTO) 8.2 K/uL (1.8-7.7); NEUTROPHILS % (AUTO) 80.6 % (42.2-75.2); PLATELET COUNT (AUTO) 396 K/uL (140-450); RED BLOOD CELL COUNT(AUTO) 4.96 MIL/uL (4.20-6.10); RED CELL DISTRIBUTION WIDTH 12.9 % (11.6-13.7); WHITE BLOOD COUNT (AUTO) 10.2 K/uL (4.8-10.8)
--- NOTE | 2021-07-21 07:30 | NUR ---
RECEIVED REPORT FROM TITLE CLERK. PT RESTING IN BED, AWAKE, AXO4. RESPIRATION EVEN AND UNLABORED ON 6L O2, O2SAT 94%. NO C/O PAIN. AMBULATORY TO BATHROOM. IV SALINE LOCK AT THE LEFT FOREARM 22G, PATENT AND INTACT. POC DISCUSSED. SKIN INTACT. ISOLATION PRECAUTION FOR COVID. CALL LIGHT WITHIN REACH. WILL CONTINUE TO MONITOR
[2021-07-21 07:39] LABS: ALBUMIN 2.8 g/dL (3.4-5.0); ANION GAP 9.9 (8-16); CARBON DIOXIDE 27.6 mmol/L (21-32); CREATININE 0.9 mg/dL (0.6-1.3); POTASSIUM 4.5 mmol/L (3.5-5.1); TOTAL BILIRUBIN 0.7 mg/dL (0.0-1.0)
[2021-07-21 08:00] VITALS: BP 117/82
--- NOTE | 2021-07-21 09:15 | NUR ---
O2SAT ON ROOM AIR 87%. PLACED ON O2 5L VIA NASAL CANNULA, O2SAT WENT UP TO 93-94%
--- NOTE | 2021-07-21 09:20 | NUR ---
DUE MORNING MEDS. TOLERATED PO MEDS WELL
[2021-07-21] MEDS: APIXABAN 2.5 MG TAB PO SCH (09:32)
[2021-07-21] MEDS: OLUMIANT PO SCH (09:33)
[2021-07-21] MEDS: PANTOPRAZOLE 40 MG TABEC PO SCH (09:33)
--- NOTE | 2021-07-21 10:31 | NUR ---
07/21/21 RD FOLLOW UP COMPLETED PLEASE REFER TO NUTRITION ASSESSMENT UNDER CARE ACTIVITY FOR ESTIMATED NUTRITIONAL NEEDS. 1. CONTINUE CARDIAC DIET TOLERATED 2. CONTINUE HEALTH SHAKE TID 3. RD TO FOLLOW-UP 3-5 DAYS, MODERATE RISK FELIPE COFFEY RD
--- NOTE | 2021-07-21 11:05 | NUR ---
DC PLANNING HUI CALL [facility] AT SPOKE TO AIDA ABOUT PT'S ORDER AND REQUEST FOR HOME O2. HE AGREED AND CHECK ON ORDER AND WILL FOLLOW UP WITH THESE NCR OPERATOR ABOUT ORDER LATER TODAY. HUI FAXED CLINICALS, INF. AND ORDER AT WITH CONFIRMATION COMPLETED AT ABOUT 11:15AM. Addendum: 07/21/21 at 1238 by Ngoc Solo CM [facility] ORDER DESK CLERK AIDA CALLED HUI BACK STATING THAT SHE HAS RECEIVED PATIENT'S ORDERS AND INF. AND WILL BE ABLE TO DELIVER THE EQUIPMENT TODAY TO PATIENT'S HOME BETWEEN 3:00 -5:30PM TODAY. HUI THANKED HER AND AGREED TO CALL PATIENT'S FAMILY ()TO COORDINATE PATIENT'S EQUIPMENT DELIVERY AT HOME AND DISCHARGE. Addendum: 07/21/21 at 1247 by Ngoc Solo CM HUI CONTACTED LANGUAGE LINE AND SPOKE TO CHRISTINE ROTARY PLANER SET UP OPERATOR # [id number] TO REQUEST A CALL IN [employer] WITH PATIENT'S CHRISTIAN HERNANDEZ AT . PATIENT'S ANSWER AND WAS AWARE OF PATIENT'S DC TODAY FROM [facility]. DISCUSSED [facility] DELIVERING [facility] HOME 02 DELIVERY DURING THE TIMES OF 3:00 TO 5:00PM TODAY. PATIEN'S AGREED AND STATED THAT SHE WILL BE HOME AT 1:00PM AND WILL BE WAITING FOR PATIENT'S EQUIPMENT SINCE THEN, AFTER THE DELIVERY IS COMPLETED SHE WILL BRING THE MOBILE O2 TO [facility] TO POULTRY [facility]ANGER PATIENT FOR DC AT ABOUT 6:30PM. SHE THANKED THIS NCR OPERATOR FOR THE CALL AND ENDED IT. Addendum: 07/21/21 at 1252 by Ngoc Solo CM HUI CALL TELE UNIT SPOKE TO JASON MARTINEZ TO INFORM HIM OF PATIENT DC TIME ABOUT 6:30PM WITH TRANSPORTING HIM W/HOME . Addendum: 07/21/21 at 1554 by Ngoc Solo CM HUI CALL PATIENT'S PCP OFFICE TO REQUEST FOR PATIENT'S FOLLOW UP APPT. WITHIN 7 DAYS AFTER DC FROM [facility]. SPOKE TO TRACY WHO WAS ABLE TO SCHEDULE A TELEHEALTH APPOINTMENT FOR PATIENT ON 07/27/2021 AT 13:45. HUI CALLED PATIENT'S PCP OFFICE MD MARIANA KING AT TO SET UP A FOLLOW UP CARE APPOINTMENT FOR PATIENT WITHIN 7 DAYS OF DISCHARGE FROM [facility]. HUI SPOKE TO TRACY WHO PROVIDED PATIENT'S APPOINTMENT FOR 07/27/2021 AT 13:45PM VIA TELEHEALTH ONLY. DUE TO COVID PATIENT. SW THANK HER FOR THE INFORMATION AND ENDED THE CALL. HUI SPOKE TO PATIENT'S VIA PHONE ON LANGUAGE LINE AND ROTARY PLANER SET UP OPERATOR JYOTI #[id number] TO INFORM HER OF PATIENT'S FOLLOW UP APPOINTMENT SCHEDULED VIA TELEHEALTH ON 07/27/2021 AT 13:45 DUE TO SW NOT MEETING PT. AT BEDSIDE DUE TO DX COVID. HUI INSTEAD SPOKE TO VIA PHONE AND WITH LANGUAGE LINE AND ALSO LEFT HER A NOTE WITH APPOINTMENT INFORMATION TO BE PROVIDED TO PATIENT AND AT DISCHARGE WITH REST OF DOCUMENTATION.
--- NOTE | 2021-07-21 11:45 | NUR ---
PT SITTING IN BED, NO C/O PAIN, NO SOB. PT ANXIOUS ABOUT GOING HOME, EXPLAINED THAT HE REQUIRES HOME O2 AND THAT CASE MANAGEMENT IS WORKING ON IT.
[2021-07-21 12:00] VITALS: BP 126/86
[2021-07-21] MEDS ORDERED: PRO5 PO (13:01)
[2021-07-21] MEDS ORDERED: APIX2.5 PO (13:01)
[2021-07-21] MEDS ORDERED: FAMO-90 PO (13:01)
[2021-07-21] MEDS ORDERED: DEXA6TAB1 PO (13:01)
--- NOTE | 2021-07-21 15:00 | NUR ---
PT RESTING IN BED, NOC/O PAIN, NO SOB ON 5L O2
[2021-07-21 16:00] VITALS: BP 104/68
--- NOTE | 2021-07-21 17:30 | NUR ---
DISCHARGE INSTRUCTION GIVEN TO VIA CHEF ASSISTANT PHONE. VERBALIZED UNDERSTANDING
--- NOTE | 2021-07-21 18:00 | NUR ---
PT PICKED UP BY . PT ON HOME O2 5L
== END 2021-07-21 18:00 | disposition home or self-care (01) | DRG 137 ==
LOC: MED 10:28 → MTU 16:01
PROVIDERS: ADMIT Internal Medicine; ATTEND Internal Medicine
PROC: XW033E5 Introduction of Remdesivir Anti-infective into Peripheral Vein, Percutaneous Approach, New Technology Group 5 (ICD-10-PCS; 2021-07-13)
PROC: 5A0935A Assistance with Respiratory Ventilation, Less than 24 Consecutive Hours, High Flow/Velocity Cannula (ICD-10-PCS; principal; 2021-07-14)
PROC: 5A0935A Assistance with Respiratory Ventilation, Less than 24 Consecutive Hours, High Flow/Velocity Cannula (ICD-10-PCS; 2021-07-15)
PROC: 5A0945A Assistance with Respiratory Ventilation, 24-96 Consecutive Hours, High Flow/Velocity Cannula (ICD-10-PCS; 2021-07-16)
DX: U07.1 COVID-19 (principal); J96.01 Acute respiratory failure with hypoxia; J12.82 Pneumonia due to coronavirus disease 2019; E87.1 Hypo-osmolality and hyponatremia
CPT/HCPCS: 36415; 36600; 71045; 80053; 81001; 82533; 82550; 82553; 82728; 82803; 83036; 83605; 83615; 83735; 83880; 83935; 84300; 84443; 84484; 85025; 85379; 85384; 85610; 85730; 86140; 87040; 87081; 87086; 87420; 87804; 93005; 96365; 99291; J0456; J0696; J7060; U0003